=== PATIENT | female | born 1975 | race Caucasian/White ===

== ENCOUNTER 2017-11-11 06:43 | Inpatient (IN) | payer OTHER ==
[2017-11-03 13:10] VITALS: BMI 34.8
[2017-11-11] MEDS ORDERED: DEXAMETHASONE SOD PHOSPHATE 10 MG/ML 1 ML VIAL IV ONE (06:47)
[2017-11-11] MEDS ORDERED: ONDANSETRON 4 MG/2 ML VIAL IVP ONE (06:47)
[2017-11-11] MEDS ORDERED: MIDAZOLAM 2 MG/2 ML VIAL IV PRN (06:47)
[2017-11-11] MEDS ORDERED: LIDOCAINE 1% 20 ML VIAL (10MG/ML) FOR IV START INTRADERMA PRN (06:47)
[2017-11-11] MEDS ORDERED: SCOPOLAMINE 1.5MG/72HR PATCH TRANSDERM ONE (06:47)
[2017-11-11] MEDS ORDERED: LACTATED RINGERS 1,000 ML IV ONE ×2 (07:25→09:50)
[2017-11-11 08:01] LABS: Basophils # (A) 0.1 k/uL (0-0.2); Basophils % (A) 1 %; Eosinophils # (A) 0.2 k/uL (0-0.7); Eosinophils % (A) 3 %; HCT 43.1 % (34.0-46.0); HGB 14.6 gm/dL (11.4-16.0); Lymphocytes # (A) 2.5 k/uL (1.0-4.8); Lymphocytes % (A) 25 %; MCH 29.6 pg (25.0-35.0); MCHC 33.9 g/dL (31.0-37.0); MCV 87.5 fL (80.0-100.0); Mean Platelet Volume 6.8; Monocytes # (A) 0.6 k/uL (0-1.0); Monocytes % (A) 6 %; Neutrophils # (A) 6.1 k/uL (1.3-7.7); Neutrophils % (A) 63 %; Platelet Count 465 k/uL (150-450); RBC 4.93 m/uL (3.80-5.40); RDW 13.6 % (11.5-15.5); WBC 9.7 k/uL (3.8-10.6)
[2017-11-11] MEDS ORDERED: ROCURONIUM BROMIDE 10 MG/ML 10 ML VIAL IV ONE (08:32)
[2017-11-11] MEDS ORDERED: SUCCINYLCHOLINE CHLORIDE 100 MG/5 ML SYR IV ONE (08:32)
[2017-11-11] MEDS: BACITRACIN 50,000 UNIT, POLYMYXIN B 500,000 UNIT in SODIUM CHLORIDE 0.9% IRRIGATIO 1,00... IRRIGATION ONE ×2 (08:32→09:26)
[2017-11-11] MEDS ORDERED: LIDOCAINE 1% INJ 10MG/ML (20 ML MDV) ONE (08:32)
[2017-11-11] MEDS ORDERED: fentaNYL (PF) 50 MCG/ML 2 ML AMP ONE (08:32)
[2017-11-11] MEDS ORDERED: PROPOFOL 10 MG/ML 20 ML VIAL IV ONE (08:32)
[2017-11-11] MEDS ORDERED: HYDROmorphone (PF) 1 MG/ML ONE (08:32)
[2017-11-11] MEDS ORDERED: MIDAZOLAM 2 MG/2 ML VIAL ONE (08:32)
[2017-11-11] MEDS: ceFAZolin IN SWFI 2 GM/20 ML SYRINGE IVP ONE ×3 (08:40→09:30)
[2017-11-11] MEDS ORDERED: GELATIN SPONGE,ABSORB (SMALL) 1 EACH SPONGE TOPICAL ONE (09:26)
[2017-11-11] MEDS ORDERED: LIDOCAINE 1%-EPI 1:100,000 30 ML VIAL SQ ONE ×2 (09:26→11:40)
[2017-11-11] MEDS ORDERED: THROMBIN (BOVINE) 5,000 UNIT VIAL TOPICAL ONE (09:26)
[2017-11-11] MEDS ORDERED: ROPIVACAINE 5 MG/ML 30 ML VIAL MISCELLANE ONE ×2 (09:56→11:40)
[2017-11-11] MEDS ORDERED: ONDANSETRON 4 MG/2 ML VIAL IVP PRN (11:59)
[2017-11-11] MEDS ORDERED: MAGNESIUM HYDROXIDE 2,400 MG/10 ML CUP PO PRN (11:59)
[2017-11-11] MEDS ORDERED: BENZOCAINE/MENTHOL LOZENG 1 EACH LOZENGE MUCOUS MEM PRN (11:59)
[2017-11-11] MEDS ORDERED: HYDROmorphone 0.5 MG/0.5 ML SYRINGE IVP PRN (11:59)
[2017-11-11] MEDS ORDERED: FAMOTIDINE 20 MG TAB PO PRN (12:02)
--- NOTE | 2017-11-11 12:09 | P.OP ---
Date of Procedure: 11/11/17 Preoperative Diagnosis: Spondylolisthesis L5-S1 grade 2 Spinal stenosis Foraminal stenosis Low back pain with lower extremity radiculopathy Postoperative Diagnosis: Same Anesthesia: GETA Pathology: none sent Condition: stable Disposition: PACU Description of Procedure: DESCRIPTION OF PROCEDURE(S): BRIEF OPERATIVE NOTE Preoperative Diagnosis: Grade 2 spondylolisthesis L5-S1, spinal stenosis, foraminal stenosis, low back pain and lower extremity radiculopathy, degenerative disc disease Postoperative Diagnosis: Same Procedure: Laminectomy and decompression bilaterally at L5-S1 Minimally invasive Posterior lateral decompression and fusion L5-S1 Minimally invasive Transforaminal lumbar interbody fusion for a 360 fusion L5-S1 Discectomy for decompression L5-S1 Placement of interbody graft L5-S1 Local autogenous bone grafting Harvesting of bone marrow aspirate via the pedicle and vertebral body of L5 Use of bone graft extenders Surgeon: Dr. Armenta School Psychologist Assistant: Shannan Bedolla and Skylar HERRERA, one of whom is present throughout the entire the case persistence during positioning, dissection, exposure, visualization, and all crucial elements of the case as well as closure. Anesthesia: General anesthesia per Dr. Dr. Ruiz Estimated blood loss: Approximately 150 mL Complications: None apparent Components implanted: K2M minimally invasive [place] pedicle screw system with 6.5 mm screws to rods and 1 [place] interbody cage with 1 osteoamp sponge and 30 mL of DBX bone fibers to supplemental local autogenous bone marrow aspirate graft Disposition: To recovery room in good stable condition. OPERATIVE INDICATIONS The patient has had long-standing issues in their lower back and lower extremities. She was found have a dynamic spondylolisthesis at L5-S1 with significant stenosis and disc degeneration which correlated well with her low back and lower extremity symptoms. The patient has been through conservative treatment. She is not having any lasting benefit despite aggressive conservative treatment and she was having worsening of her daily activities and her ability to work due to her issues. We discussed various treatment options including surgery, and the patient wishes to proceed with surgery We discussed the risk, patient's alternatives and benefits of surgery including but not limited to, risk of bleeding risk of infection, risk of need for further surgery , risk of decreased, loss of motion, muscle function, malunion nonunion, hardware failure, nerve damage, paralysis, heart attack, blindness and . OPERATIVE SUMMARY After discussing all the risks, patient alternatives and benefits at length, the patient elected to proceed with surgical intervention, signed informed consent, and presented for their procedure. The patient was seen and examined in the preoperative holding area and the surgical site was marked. The patient was given antibiotics and brought to the operating room. The patient was sedated and intubated by anesthesia in standard fashion. The patient was positioned on to the operating room table in a prone position on the appropriate frame which was well-padded and well molded. We were careful to pad any bony prominences and pressure points. We were careful to maintain the patient's cervical spine and good neutral alignment and position throughout. The patient was prepped and draped in a normal standard fashion. An appropriate timeout and keystone protocol performed. We were able to proceed with the surgery. The local wound area was infiltrated with local anesthetic. I was able utilize C-arm guidance to establish appropriate position over the pedicles bilaterally at the appropriate levels at L5-S1. The patient does have tattoos at her lower back and she was aware that the surgical incisions may involve the tattoos themselves and she understood. With the appropriate levels confirmed was able to make small stab incisions over the appropriate pedicle sites bilaterally. Utilizing C-arm in his house able to establish a Jamshidi needle over the lateral aspect of the pedicle and advanced the trocar into the pedicle being careful not to breech superiorly inferiorly medially or laterally. Position was confirmed regularly with AP and lateral images on C- arm. I was able to establish the trocar into the pedicle appropriately into the posterior aspect of the vertebral body bilaterally at the appropriate levels at L5-S1 on the right. This was done at each of the pedicle positions and each of the vertebrae. I was able place the guidewire into the trocar and into the vertebral body appropriately under C-arm guidance. On the right side I did withdraw bone marrow aspirate from the pedicle of L5 for supplementing the bone graft and fusion. Dissection was taken down over the wire to the appropriate starting position for the screw placed. The appropriate length screw was chosen, threaded over the guidewire and screwed appropriately into the pedicle and vertebral body under C-arm guidance in excellent alignment and position with good bony purchase. This is done at each of the screw sites at the appropriate levels at L5 and S1. I did reposition the screw at S1 as it did have some stimulation. I was able place in good alignment and good position with excellent bony purchase with no evidence of stimulation.. With the screws intact I extended the incision to connect the screw hole sites on the most symptomatic side on the right. I dissected down to establish access over the pars and lamina to the base of the spinous process. I was able to expose the facet joint. The capsule the facet was taken down and showed some facet arthrosis at the joint. I was able to use a combination of curettes and Kerrison rongeurs and a high-speed drill to take down the facet joint and do a facetectomy. Partial laminectomy was also performed. I was able get excellent foraminal decompression and central decompression with undermining across midline to perform a laminectomy centrally and contralaterally. As able get good central decompression. The ligamentum flavum was taken down to further decompress centrally and at bilateral neural foramen. I was able to expose the disc space and visualize the traversing nerve root. Note was made of some disc protrusion at the level causing further compression of the nerve root. I was able to establish a annulotomy at the appropriate level protecting soft tissue and neural structures. Note was made of some disc desiccation at the disc. I performed a complete discectomy with accommodation of curettes and rasps and scrapers. There is an obvious step-off with a listhesis at that level. I was able get good endplate preparation at the disc space. I sized for the appropriate size interbody spacer protecting the soft tissue and neural structures. The wound was copiously irrigated and suctioned dry. There is no evidence of any dural tear or leak. I was able to pack the disc space with local autogenous bone graft as well as a small amount of bone graft which was also placed into the interbody cage itself. Protecting the soft tissue structures and neural structures I was able place the interbody cage in good alignment and good position with good fit and fill at the interbody space. His issues was confirmed with C-arm guidance. Good hemostasis maintained. There is no evidence of any dural tear or leak. The wound was irrigated and suctioned dry. With the hardware intact, intraoperative C-arm imaging was again taken which showed good alignment and position of the hardware at the appropriate levels at L5-S1. We were then able to measure, contour and place the rods and appropriate hardware bilaterally. I was able to place capcrews, tighten them down, and torque them with the torque screwdriver appropriately. With this intact I was able to place the local autogenous bone graft with additional bone graft enhancer as necessary into the posterior lateral gutters over the decorticated transverse processes and facet joints. The remainder of the bone graft was placed over the facet joint on the contralateral side after taking down the facet joint capsule. With the bone graft intact, a stable construct, and good decompression at the appropriate levels, we were able to proceed with closure. Good hemostasis was maintained. There is no evidence of dural tear or leak. The fascia was closed for a watertight closure. he subcuticular tissue was closed with absorbable suture. The wound was cleaned and dried and dressed with the appropriate dressing. The drapes were broken down. The patient was gently rolled back onto their hospital bed being careful to maintain their cervical spine and good neutral alignment and position. They were woken up by anesthesia, extubated, and brought to the recovery room in good stable condition. The patient will be admitted to the hospital for appropriate postoperative care , medical management and monitoring. We will continue to follow them closely about the postoperative course.
--- NOTE | 2017-11-11 12:21 | FL ---
EXAMINATION TYPE: FL guidance operating room DATE OF EXAM: 11/11/2017 HISTORY: Flouroscopy time 1 minute and 49 seconds of fluoroscopy provided. IMPRESSION: 1. Fluoroscopy time.
[2017-11-11] MEDS: fentaNYL (PF) 50 MCG/ML 2 ML AMP IVP ONE ×4 (12:25→13:49)
[2017-11-11] MEDS: HYDROmorphone 0.5 MG/0.5 ML SYRINGE IVP PRN ×6 (12:50→21:49)
[2017-11-11] MEDS: DIAZEPAM 5 MG TAB PO PRN (13:20)
[2017-11-11] MEDS: HYDROcodone/APAP 7.5-325MG 1 EACH TAB PO PRN ×2 (14:41→20:33)
[2017-11-11] MEDS: LACTATED RINGERS 1,000 ML IV SCH (15:15)
[2017-11-11] MEDS: SODIUM CHLORIDE 0.9% 1,000 ML IV SCH (15:15)
[2017-11-11] MEDS: NICOTINE 14MG/24HR PATCH TRANSDERM SCH (16:02)
--- NOTE | 2017-11-11 16:54 | P.CONS ---
History of Present Illness - Reason for Consult Consult date: 11/11/17 Medical managment Requesting physician: Bebe Armenta - History of Present Illness This is a 42 year old patient of Dr. Zhao. She presented today for a planned Minimally invasive transfcraminal lumbar interbody fusion L5-S1 with Neural integrity monitor with Dr. Armenta. She has a medical history of GERD, Osteoarthritis, degenerative disk disease, anxiety and depression. She is currently resting in bed with mild discomfort. Patient informed that we do not carry the medication Vraylar in the hospital that she takes for her anxiety. Patient states that the buspar should be sufficient to control her anxiety but aware that if she needs the Vraylar she may have it brought into the hospital ang given to the nursing staff to administer. Patient denies any chest pain or SOB. Denies nausea, vomiting or diarrhea. Review of Systems please see HPI, otherwise unremarkable Past Medical History Past Medical History: GERD/Reflux, Osteoarthritis (OA) Additional Past Medical History / Comment(s): degenerative disk disease, high triglycerides, History of Any Multi-Drug Resistant Organisms: None Reported Past Surgical History: Cholecystectomy, Ear Surgery, Tonsillectomy Past Anesthesia/Blood Transfusion Reactions: No Reported Reaction Past Psychological History: Anxiety, Depression Smoking Status: Current every day smoker Past Alcohol Use History: Occasional Additional Past Alcohol Use History / Comment(s): smokes 1/2 PPD, for 23 yrs Past Drug Use History: None Reported - Past Family History Mother Family Medical History: No Reported History Medications and Allergies Home Medications Medication Instructions Recorded Confirmed Type Cariprazine HCl [Vraylar] 1.5 mg PO BID 11/03/17 11/11/17 History Ergocalciferol [Vitamin D2] 50,000 unit PO TU 11/03/17 11/11/17 History Gemfibrozil [Lopid] 600 mg PO BID 11/03/17 11/11/17 History Hydrocodone/Acetaminophen 1 tab PO BID 11/03/17 11/11/17 History [Hydrocodon-Acetaminoph 7.5-325] Meloxicam [Mobic] 7.5 mg PO BID 11/03/17 11/11/17 History Ranitidine HCl [Zantac] 150 mg PO BID PRN 11/03/17 11/11/17 History busPIRone HCl [Buspar] 10 mg PO BID 11/03/17 11/11/17 History Allergies Allergy/AdvReac Type Severity Reaction Status Date / Time erythromycin base Allergy Rash/Hives Verified 11/11/17 15:05 levofloxacin [From Levaquin] Allergy Rash/Hives Verified 11/11/17 15:05 sulfamethoxazole Allergy Rash/Hives Verified 11/11/17 15:05 [From Bactrim] trimethoprim [From Bactrim] Allergy Rash/Hives Verified 11/11/17 15:05 Physical Exam Vitals: Vital Signs Temp Pulse Pulse Resp BP BP Pulse Ox 11/11/17 14:06 89 18 130/82 97 11/11/17 13:51 96 18 129/82 97 11/11/17 13:36 100 16 125/64 97 11/11/17 13:19 92 18 131/78 99 11/11/17 13:04 81 20 133/72 98 11/11/17 12:49 97 18 140/81 96 11/11/17 12:34 94 20 140/84 97 11/11/17 12:19 97.0 F L 116 H 22 148/83 96 11/11/17 07:07 98.0 F 98 18 106/68 98 Intake and Output 11/11/17 11/11/17 11/11/17 06:59 14:59 22:59 Intake Total 1851 Output Total 650 Balance 1201 Intake: IV 1851 Output: Urine 500 Estimated Blood Loss 150 Head: Normocephalic Neck: supple Lungs: clear to auscultation bilaterally no wheezing or crackles Heart: regular rate and rhythm S1-S2, no rub or gallop Abdomen: soft and nontender. positive bowel sounds Extremities: no edema Neuro: alert and orientated X 3 Results CBC & Chem 7: 11/11/17 07:35 Labs: Abnormal Lab Results - Last 24 Hours (Table) 11/11/17 Range/Units 07:35 Plt Count 465 H (150-450) k/uL Assessment and Plan Assessment: 1. Post Minimally invasive transfcraminal lumbar interbody fusion L5-S1 with Neural integrity monitor with Dr. Armenta 2. Anxiety: Buspar ordered. Patient instructed that if needed she can have her medication Vraylar brought in and given to the nursing staff for administration. 3. Nicotine Dependence: Nicotine patch ordered 4. History of Osteoarthritis 5. History of GERD: Pepcid ordered DVT prophylaxis SCD, GI prophylaxis Pepcid Time with Patient: Greater than 30
[2017-11-11] MEDS: ceFAZolin IN SWFI 2 GM/20 ML SYRINGE IVP SCH (16:56)
[2017-11-11] MEDS: busPIRone HCl 10 MG TAB PO SCH (20:33)
[2017-11-11] MEDS: GEMFIBROZIL 600 MG TAB PO SCH (20:34)
[2017-11-12] MEDS: Cariprazine Hcl [Vraylar] 1.5 MG PO SCH ×2 (00:35→08:30)
[2017-11-12] MEDS: ceFAZolin IN SWFI 2 GM/20 ML SYRINGE IVP SCH (00:48)
[2017-11-12] MEDS: HYDROmorphone 0.5 MG/0.5 ML SYRINGE IVP PRN ×2 (01:54→06:26)
[2017-11-12] MEDS: HYDROcodone/APAP 7.5-325MG 1 EACH TAB PO PRN ×2 (03:49→11:47)
[2017-11-12 07:18] LABS: Basophils % (A) 0 %; Eosinophils # (A) 0.1 k/uL (0-0.7); Eosinophils % (A) 1 %; HCT 38.4 % (34.0-46.0); HGB 13.1 gm/dL (11.4-16.0); Lymphocytes # (A) 2.7 k/uL (1.0-4.8); Lymphocytes % (A) 16 %; MCH 30.2 pg (25.0-35.0); MCHC 34.3 g/dL (31.0-37.0); MCV 88.1 fL (80.0-100.0); Mean Platelet Volume 6.7; Monocytes # (A) 0.9 k/uL (0-1.0); Monocytes % (A) 5 %; Neutrophils # (A) 12.5 k/uL (1.3-7.7); Neutrophils % (A) 75 %; Platelet Count 392 k/uL (150-450); RBC 4.35 m/uL (3.80-5.40); RDW 13.6 % (11.5-15.5); WBC 16.5 k/uL (3.8-10.6)
[2017-11-12] MEDS: SODIUM CHLORIDE 0.9% 1,000 ML IV SCH (07:33)
[2017-11-12 07:34] LABS: Anion Gap 12 mmol/L; Blood Urea Nitrogen 11 mg/dL (7-17); Calcium 9.7 mg/dL (8.4-10.2); Carbon Dioxide 24 mmol/L (22-30); Chloride 105 mmol/L (98-107); Glucose 121 mg/dL (74-99); Potassium 4.1 mmol/L (3.5-5.1); Sodium 141 mmol/L (137-145)
[2017-11-12 07:55] VITALS: BP 102/65; TEMP 98.2
--- NOTE | 2017-11-12 08:22 | P.DS ---
Providers Date of admission: 11/11/17 06:43 Attending physician: Bebe Armenta Consults: 11/11/17 11:59 Consult Physician Routine Consulting Provider: Liv Zhao Consult Reason/Comments: Medical management Do you want consulting provider notified?: Yes 11/11/17 13:55 Consult Physician Routine Consulting Provider: Jacob Rincon Consult Reason/Comments: medical management Do you want consulting provider notified?: Yes Primary care physician: Liv Zhao Hospital Course: The patient presented on the day of admission as per her operative note . and she underwent minimally invasive decompression and fusion L5-S1 as per her operative note for her severe spondylolisthesis with degenerative disc disease and stenosis. She says she is doing well today and though she has seen him and soreness in her back or legs are doing well and she has been able to mobilize. She feels her pain medicine is controlling her pain adequately. Physical Exam The incision site is clean dry and intact. There is no erythema no drainage. There is no purulence no evidence of infection. Abdomen soft and nontender. Chest has good excursion with deep inspiration and expiration. The patient has active and passive range of motion intact at the upper and lower extremities. There is no acute change in neurologic status. I changed her dressing which had been saturated overnight. There is no active drainage from the wound site. There is mild swelling but no erythema and no further bleeding at this point. Steri-Strips are intact. Hospital Course postoperative day #1 status post minimally invasive decompression and fusion at L5-S1 for her spondylolisthesis with spinal stenosis and lower extremity radiculopathy. The patient has been making good progress postoperatively. They have completed the prophylactic antibiotics without any signs or symptoms of infection. The patient has been able to advance their diet, and is tolerating diet adequately. The pain was initially controlled with IV medications and is now controlled appropriately with oral medications. The patient has been able to increase their mobilization. she has been ambulatory in the hallways this morning and feels good getting in and out of bed. She is hopeful go home today The patient has progressed appropriately. I think they are in good stable condition for discharge today IF she is able to mobilize further and do well with her oral diet and oral pain control. The wound has been doing well but she has significant drainage today we may have to monitor this overnight as well. . They will be sent home with appropriate prescriptions. she was on [place] 7.[address] Domingo in the past and we will continue her on this when she goes home with a new prescription. I answered their questions to the best of my ability in a language that they can understand and they are agreeable with the plan. They will follow up as directed in approximately 2 weeks or sooner if she is having a problems . Patient Condition at Discharge: Good Plan - Discharge Summary Discharge Rx Participant: Yes New Discharge Prescriptions: New HYDROcodone/APAP 7.5-325MG [[place] 7.5-325] 1 tab PO Q6HR PRN 28 Days #90 tab PRN Reason: Severe Pain No Action Hydrocodone/Acetaminophen [Hydrocodon-Acetaminoph 7.5-325] 1 tab PO BID Cariprazine HCl [Vraylar] 1.5 mg PO BID busPIRone HCl [Buspar] 10 mg PO BID Meloxicam [Mobic] 7.5 mg PO BID Ranitidine HCl [Zantac] 150 mg PO BID PRN PRN Reason: Heartburn Gemfibrozil [Lopid] 600 mg PO BID Ergocalciferol [Vitamin D2] 50,000 unit PO Discharge Medication List Cariprazine HCl [Vraylar] 1.5 mg PO BID 11/03/17 [History] Ergocalciferol [Vitamin D2] 50,000 unit PO TU 11/03/17 [History] Gemfibrozil [Lopid] 600 mg PO BID 11/03/17 [History] Hydrocodone/Acetaminophen [Hydrocodon-Acetaminoph 7.5-325] 1 tab PO BID [History] Meloxicam [Mobic] 7.5 mg PO BID 11/03/17 [History] Ranitidine HCl [Zantac] 150 mg PO BID PRN 11/03/17 [History] busPIRone HCl [Buspar] 10 mg PO BID 11/03/17 [History] HYDROcodone/APAP 7.5-325MG [[place] 7.5-325] 1 tab PO Q6HR PRN 28 Days #90 tab [Rx] Follow up Appointment(s)/Referral(s): Bebe Armenta DO [Doctor of Osteopathic Medicine] - 2 Weeks Activity/Diet/Wound Care/Special Instructions: Keep site clean. May shower with waterproof Tegaderm intact. Do not soak in a tub. On Thursday, the patient may remove dressing and then may shower with area uncovered but do not soak in a tub. Leak Steri-Strips intact and allow them to fray off on their own. May ambulate to tolerance. No heavy or rigorous activity. No repetitive bending twisting or lifting. Discharge Disposition: HOME SELF-CARE
[2017-11-12] MEDS: NICOTINE 14MG/24HR PATCH TRANSDERM SCH (08:29)
[2017-11-12] MEDS: busPIRone HCl 10 MG TAB PO SCH (08:29)
[2017-11-12] MEDS: GEMFIBROZIL 600 MG TAB PO SCH (08:29)
[2017-11-12] MEDS: LACTATED RINGERS 1,000 ML IV SCH (08:45)
[2017-11-12] MEDS ORDERED: SENNOSIDES-DOCUSATE SODIUM 1 EACH TAB PO SCH (09:00)
[2017-11-12 09:40] VITALS: PULSE 84; RESP 16
[2017-11-12] MEDS: DIAZEPAM 5 MG TAB PO PRN (10:01)
--- NOTE | 2017-11-12 12:28 | P.PN ---
Subjective Progress Note Date: 11/12/17 This is a 42 year old patient of Dr. Zhao. She presented today for a planned Minimally invasive transfcraminal lumbar interbody fusion L5-S1 with Neural integrity monitor with Dr. Armenta. She has a medical history of GERD, Osteoarthritis, degenerative disk disease, anxiety and depression. She is currently resting in bed with mild discomfort. Patient informed that we do not carry the medication Vraylar in the hospital that she takes for her anxiety. Patient states that the buspar should be sufficient to control her anxiety but aware that if she needs the Vraylar she may have it brought into the hospital ang given to the nursing staff to administer. Patient denies any chest pain or SOB. Denies nausea, vomiting or diarrhea. 11/12/2017 patient is scheduled for discharge later this afternoon. Heart rate this morning was 84. Tachycardia has resolved. And it was likely related to patient's pain. Patient has been up and ambulate in. Denies any chest pain or shortness of breath. Denies any nausea or vomiting. Denies any burning with urination. Has not had a bowel movement yet. Objective - Vital Signs Vital signs: Vital Signs Temp 98.2 F 11/12/17 07:20 Pulse 84 11/12/17 07:20 Resp 16 11/12/17 07:20 BP 102/65 11/12/17 07:20 Pulse Ox 98 11/11/17 19:49 Intake & Output 11/11/17 11/12/17 11/12/17 18:59 06:59 18:59 Intake Total 2331 2080 Output Total 650 1000 Balance 1681 1080 Intake: IV 1851 Intake, IV Titration 1200 Amount Sodium Chloride 0.9% 1, 1200 000 ml @ 75 mls/hr IV . [id number] [facility] Rx#:[id number] Oral 480 880 Output: Urine 500 1000 Uretheral (Miller) 1000 Estimated Blood Loss 150 Other: Voiding Method Toilet Toilet # Voids 3 - Exam Head normocephalic Neck supple Lungs clear to auscultation bilaterally no wheezing or crackles Heart regular rate and rhythm S1-S2, no rub or gallop Abdomen is soft nontender nondistended positive bowel sounds no hepatosplenomegaly Extremities no edema Neuro alert and orientated to 3 - Labs CBC & Chem 7: 11/12/17 06:39 11/12/17 06:39 Labs: Abnormal Lab Results - Last 24 Hours (Table) 11/12/17 11/12/17 Range/Units 06:39 06:39 WBC 16.5 H (3.8-10.6) k/uL Neutrophils # 12.5 H (1.3-7.7) k/uL Glucose 121 H (74-99) mg/dL Assessment and Plan Assessment: 1. Status Post Minimally invasive decompression and fusion at L5 to S1 for spondylolisthesis with spinal stenosis and lower extremity radiculopathy. Continue pain medication per Dr. Armenta 2. Anxiety: Buspar ordered. Patient instructed that if needed she can have her medication Vraylar brought in and given to the nursing staff for administration. 3. Nicotine Dependence 4. History of Osteoarthritis 5. History of GERD: Pepcid ordered 6. Leukocytosis: No evidence of an acute infection. Likely related to the dexamethasone she received yesterday 7. Sinus tachycardia likely related to patient's pain now resolved Patient is medically stable for discharge. We'll have her follow-up with her PCP in 1 week I performed an examination of the patient and discussed their management with the physician Farm Machinery Engine Mechanic. I have reviewed the Physician Farm Machinery Engine Mechanic's notes and agree with the documented findings and plan of care
[2017-11-17] MEDS ORDERED: ERGOCALCIFEROL 50,000 UNIT CAP PO SCH (09:00)
== END 2017-11-12 15:28 | disposition home or self-care (01) | DRG 455 ==
LOC: 2ORMAIN 06:43 → 3SUR 13:33
PROVIDERS: ADMIT Orthopaedic Surgery Orthopaedic Surgery of the Spine; ATTEND Orthopaedic Surgery Orthopaedic Surgery of the Spine
PROC: 0SG3071 Fusion of Lumbosacral Joint with Autologous Tissue Substitute, Posterior Approach, Posterior Column, Open Approach (ICD-10-PCS; 2017-11-11)
PROC: 0ST40ZZ Resection of Lumbosacral Disc, Open Approach (ICD-10-PCS; 2017-11-11)
PROC: 07DS3ZZ Extraction of Vertebral Bone Marrow, Percutaneous Approach (ICD-10-PCS; 2017-11-11)
PROC: 4A11X4G Monitoring of Peripheral Nervous Electrical Activity, Intraoperative, External Approach (ICD-10-PCS; 2017-11-11)
PROC: 0SG30AJ Fusion of Lumbosacral Joint with Interbody Fusion Device, Posterior Approach, Anterior Column, Open Approach (ICD-10-PCS; principal; 2017-11-11 08:30)
DX: M43.17 Spondylolisthesis, lumbosacral region (principal); D72.829 Elevated white blood cell count, unspecified; M48.07 Spinal stenosis, lumbosacral region; M47.27 Other spondylosis with radiculopathy, lumbosacral region; M51.37 Other intervertebral disc degeneration, lumbosacral region; F32.9 Major depressive disorder, single episode, unspecified; F41.9 Anxiety disorder, unspecified; E78.5 Hyperlipidemia, unspecified; K21.9 Gastro-esophageal reflux disease without esophagitis; F17.210 Nicotine dependence, cigarettes, uncomplicated; Z71.6 Tobacco abuse counseling; Z79.1 Long term (current) use of non-steroidal anti-inflammatories (NSAID); Z79.891 Long term (current) use of opiate analgesic; Z79.899 Other long term (current) drug therapy; Z88.1 Allergy status to other antibiotic agents; Z88.2 Allergy status to sulfonamides; Z90.49 Acquired absence of other specified parts of digestive tract; Z83.3 Family history of diabetes mellitus; Z82.49 Family history of ischemic heart disease and other diseases of the circulatory system
CPT/HCPCS: 72100; 80048; 81025; 85025

== ENCOUNTER → 2019-02-21 | Outpatient (CLI) | payer OTHER ==
--- NOTE | 2019-02-23 10:00 | MM ---
Reason for exam: screening (asymptomatic). Last mammogram was performed 5 years and 3 months ago. History: Benign left mammotome panel of the left breast, January 17, 2005. Physical Findings: A clinical breast exam by your physician is recommended on an annual basis and results should be correlated with mammographic findings. MG Screening Mammo w CAD Bilateral CC and MLO view(s) were taken. Prior study comparison: December 01, 2013, bilateral MG screening mammo w CAD. September 13, 2012, bilateral digital screening mammo w/CAD. There are scattered fibroglandular densities. Previous mammotome biopsy in the left breast. No significant changes when compared with prior studies. ASSESSMENT: Benign, BI-RAD 2 RECOMMENDATION: Routine screening mammogram of both breasts in 1 year.
== END | disposition home or self-care (01) ==
LOC: RADMAMWWP 16:37
PROVIDERS: ATTEND Family Medicine
DX: Z12.31 Encounter for screening mammogram for malignant neoplasm of breast (principal)
CPT/HCPCS: 77067

== ENCOUNTER → 2020-03-21 | Day surgery (SDC) | payer OTHER ==
[2020-03-19 14:12] VITALS: BMI 33.3
[2020-03-21 10:49] VITALS: BP 130/82; PULSE 95; RESP 16; TEMP 98.8
== END ==
LOC: ORWHC2ENDO 10:33
PROVIDERS: ATTEND Internal Medicine Gastroenterology
DX: K21.9 Gastro-esophageal reflux disease without esophagitis (principal)
CPT/HCPCS: 91010

== ENCOUNTER 2020-12-27 09:37 | Emergency (ER) | payer OTHER ==
[2020-12-27 09:53] VITALS: BP 131/89; PULSE 103; RESP 18; TEMP 97.8
[2020-12-27] MEDS ORDERED: DIPH,PERTUS(ACELL)TETVAC-LF 0.5 ML VIAL IM ONE (10:21)
--- NOTE | 2020-12-27 11:00 | XR ---
EXAMINATION TYPE: XR shoulder complete LT DATE OF EXAM: 12/27/2020 CLINICAL HISTORY: Pain after lifting injury. TECHNIQUE: Three views of the left shoulder are obtained. COMPARISON: None. FINDINGS: There is no acute fracture/dislocation evident in the left shoulder. The acromioclavicula r and glenohumeral joint spaces appear within normal limits. The visualized ribs are intact and unre markable. IMPRESSION: There is no acute fracture or dislocation in the left shoulder.
--- NOTE | 2020-12-27 11:03 | ED ---
General Adult HPI - General Chief complaint: Extremity Injury, Upper Stated complaint: Lt Elbow/Shoulder Pain Time Seen by Provider: 12/27/20 09:52 Source: patient Mode of arrival: ambulatory Limitations: no limitations - History of Present Illness Initial comments: 45-year-old female presents to the emergency room for a chief complaint of left shoulder pain. Patient reports that 2-3 weeks ago she was using a wheelbarrow. Patient lifted a wheelbarrow and felt a pain in her left shoulder. Patient states she has been trying to rest it but it does not seem to go away. States she cannot lift her arm above her head because of the pain. If denies radiates down to the left elbow.Patient has no other complaints at this time including shortness of breath, chest pain, abdominal pain, nausea or vomiting, headache, or visual changes. - Related Data Home Medications Medication Instructions Recorded Confirmed Ergocalciferol [Vitamin D2 50,000 unit PO [place] 11/03/17 03/21/20 (DRISDOL)] busPIRone HCl [Buspar] 10 mg PO BID 11/03/17 03/21/20 gemfibroziL [Lopid] 600 mg PO BID 11/03/17 03/21/20 Celecoxib [CeleBREX] 200 mg PO DAILY 03/21/20 03/21/20 traZODone HCL 1 tab PO DAILY 03/21/20 03/21/20 Previous Rx's Medication Instructions Recorded HYDROcodone/APAP 7.5-325MG [[place] 1 tab PO Q6HR PRN 28 Days #90 tab 11/12/17 7.5-325] Allergies Allergy/AdvReac Type Severity Reaction Status Date / Time erythromycin base Allergy Rash/Hives Verified 12/27/20 09:45 levofloxacin [From Levaquin] Allergy Rash/Hives Verified 12/27/20 09:45 sulfamethoxazole Allergy Rash/Hives Verified 12/27/20 09:45 [From Bactrim] trimethoprim [From Bactrim] Allergy Rash/Hives Verified 12/27/20 09:45 Review of Systems ROS Statement: Those systems with pertinent positive or pertinent negative responses have been documented in the HPI. ROS Other: All systems not noted in ROS Statement are negative. Past Medical History Past Medical History: GERD/Reflux, Osteoarthritis (OA) Additional Past Medical History / Comment(s): degenerative disk disease, high triglycerides, chronic back pain History of Any Multi-Drug Resistant Organisms: None Reported Past Surgical History: Cholecystectomy, Ear Surgery, Tonsillectomy Additional Past Surgical History / Comment(s): Back surgery with rods. Past Anesthesia/Blood Transfusion Reactions: No Reported Reaction Past Psychological History: Anxiety Smoking Status: Former smoker Past Alcohol Use History: Occasional Past Drug Use History: None Reported - Past Family History Mother Family Medical History: No Reported History General Exam Limitations: no limitations General appearance: alert, in no apparent distress Head exam: Present: atraumatic, normocephalic, normal inspection Eye exam: Present: normal appearance, PERRL, EOMI. Absent: scleral icterus, conjunctival injection, periorbital swelling ENT exam: Present: normal exam, mucous membranes moist Neck exam: Present: normal inspection, full ROM. Absent: tenderness, meningismus, lymphadenopathy Respiratory exam: Present: normal lung sounds bilaterally. Absent: respiratory distress, wheezes, rales, rhonchi, stridor Cardiovascular Exam: Present: regular rate, normal rhythm, normal heart sounds. Absent: systolic murmur, diastolic murmur, rubs, gallop, clicks Extremities exam: Present: tenderness (Tenderness to the superior shoulder), normal capillary refill (Capillary refill less than 2 seconds, radial pulse 2+), other (Sensation intact in the left hand. Patient able to flex and extend wrist, make a fist, and abduct all fingers.). Absent: full ROM (After reduction of the left shoulder to 90. Flexion to 130. Positive Dorsey sign) Course Vital Signs 12/27/20 09:45 Temperature 97.8 F Pulse Rate 103 H Respiratory 18 Rate Blood Pressure 131/89 O2 Sat by Pulse 96 Oximetry Medical Decision Making - Medical Decision Making X-ray of the left shoulder shows no acute fracture or dislocation. Patient needs to follow-up with orthopedics and I suspect there is rotator cuff injury. Sling was not applied in order to prevent frozen shoulder. Discussed increasing range of motion. She will take NSAIDS and follow-up with orthopedics. Disposition Clinical Impression: Shoulder pain, left Disposition: HOME SELF-CARE Condition: Good Instructions (If sedation given, give patient instructions): Shoulder Pain (ED) Additional Instructions: Please take Motrin and Tylenol for pain. Do range of motion exercises on the left shoulder. Follow-up with orthopedics. Return to the emergency room for any worsening symptoms. Is patient prescribed a controlled substance at d/c from ED?: No Referrals: Liv Zhao MD [Primary Care Provider] - 1-2 days Imer Brody MD [STAFF PHYSICIAN] - 1-2 days Time of Disposition: 11:14
[2020-12-27] MEDS ORDERED: KETOROLAC 15 MG/ML 1 ML VIAL IM STA (11:28)
== END 2020-12-27 11:38 | disposition home or self-care (01) ==
LOC: EC 09:37
DX: M25.512 Pain in left shoulder (principal); K21.9 Gastro-esophageal reflux disease without esophagitis; M19.90 Unspecified osteoarthritis, unspecified site; Z87.891 Personal history of nicotine dependence; Z88.1 Allergy status to other antibiotic agents; Z88.2 Allergy status to sulfonamides; Z79.899 Other long term (current) drug therapy; X50.0XXA Overexertion from strenuous movement or load, initial encounter; Y93.89 Activity, other specified
CPT/HCPCS: 73030; 99283; 96372; J1885

== ENCOUNTER → 2022-02-28 | Outpatient (CLI) | payer OTHER ==
--- NOTE | 2022-03-03 08:19 | MM ---
Reason for Exam: Screening (asymptomatic). Last mammogram was performed 3 year(s) and 1 month(s) ago. Patient History: Menarche at age 14. First Full-Term at age 21. Patient has history of breast feeding. 01/17/2005, Benign Core Biopsy on the left side. Risk Values: Zonia 5 year model risk: 0.9%. NCI Lifetime model risk: 8.6%. Prior Study Comparison: 09/13/2012 Bilateral Screening Mammogram, [facility]. 12/01/2013 Bilateral Screening Mammogram, [facility]. 02/21/2019 Bilateral Screening Mammogram, [facility]. Tissue Density: There are scattered fibroglandular densities. Findings: Analyzed By CAD. Pattern appears symmetrical and stable. Markers within the left breast. No suspicious groups of microcalcifications, spiculated or lobular masses, architectural distortion or other secondary signs of malignancy are mammographically apparent. Overall Assessment: Benign, BI-RAD 2 Management: Screening Mammogram of both breasts in 1 year. A negative mammogram report should not preclude additional follow up of suspicious palpable abnormalities. Patient should continue monthly self breast exam. A clinical breast exam by your physician is recommended on an annual basis and results should be correlated with mammographic findings. Electronically signed and approved by: Tigre Reich D.O. Radiologis
== END | disposition home or self-care (01) ==
LOC: RADMAMWWP 12:29
PROVIDERS: ATTEND Family Medicine
DX: Z12.31 Encounter for screening mammogram for malignant neoplasm of breast (principal)
CPT/HCPCS: 77067

== ENCOUNTER → 2023-04-04 | Outpatient (CLI) | payer OTHER ==
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
== END | disposition home or self-care (01) ==
LOC: RADMRIMAIN 08:24
PROVIDERS: ATTEND Neurological Surgery
DX: M51.16 Intervertebral disc disorders with radiculopathy, lumbar region (principal); M47.26 Other spondylosis with radiculopathy, lumbar region; M79.604 Pain in right leg; Z98.890 Other specified postprocedural states
CPT/HCPCS: 72148

== ENCOUNTER → 2023-10-14 | Outpatient (CLI) | payer OTHER ==
--- NOTE | 2023-10-20 19:53 | MM ---
Reason for Exam: Screening (asymptomatic). Last mammogram was performed 1 year(s) and 7 month(s) ago. Patient History: Menarche at age 14. First Full-Term at age 21. Patient has history of breast feeding. 01/17/2005, Benign Core Biopsy on the left side. Last menstrual period: 09/19/2023 Risk Values: Zonia 5 year model risk: 0.9%. NCI Lifetime model risk: 8.3%. Prior Study Comparison: 12/01/2013 Bilateral Screening Mammogram, [facility]. 02/21/2019 Bilateral Screening Mammogram, [facility]. 02/28/2022 Bilateral MG screening mammo w CAD, [facility]. Tissue Density: There are scattered areas of fibroglandular density. Findings: Analyzed By CAD. Microclip left breast from prior biopsy. There is no suspicious group of microcalcifications or new suspicious mass in either breast. Overall Assessment: Benign, BI-RAD 2 Management: Screening Mammogram of both breasts in 1 year. . Patient should continue monthly self-breast exams. A clinical breast exam by your physician is recommended on an annual basis. This exam should not preclude additional follow-up of suspicious palpable abnormalities. Note on Zonia scores and lifetime risk: 1. A Zonia score greater than 3% is considered moderate risk. If this is the case, consider specialist referral to assess eligibility for a risk reducing agent. 2. If overall lifetime risk for the development of breast cancer is 20% or higher, the patient may qualify for future screening with alternating mammogram and breast MRI. Electronically signed and approved by: Carole Caruso M.D. Radiologist
== END | disposition home or self-care (01) ==
LOC: RADMAMWWP 09:41
PROVIDERS: ATTEND Family Medicine
DX: Z12.31 Encounter for screening mammogram for malignant neoplasm of breast (principal)
CPT/HCPCS: 77063; 77067

== ENCOUNTER → 2024-03-02 | Outpatient (CLI) | payer OTHER ==
--- NOTE | 2024-03-03 11:04 | NM ---
EXAMINATION TYPE: NM thyroid image w uptake DATE OF EXAM: 03/03/2024 COMPARISON: NONE CLINICAL INDICATION: Female, 48 years old with history of E04.1 NONTOXIC SINGLE THYROID NODULE; TECHNIQUE: Thyroid iodine uptake is calculated and images performed after the oral administration of 309 uCi 1-123 Capsule. FINDINGS: Images demonstrate focal increased activity within the left thyroid lobe that could represent a hyper functioning nodule. The 4 hour iodine uptake is calculated at 7.7% (normal range 8-14%). The 24-hour iodine uptake is calculated at 14.8% (normal range 15-35%). IMPRESSION: 1. Possible nodule within the mid left thyroid lobe. Correlate with findings on thyroid ultrasound. 2. Despite the increased activity at the site of the potential nodule, uptake measurements are low styles ggesting hypothyroidism. Clinically correlate. [facility], , 03/03/2024 11:01 AM
== END | disposition home or self-care (01) ==
LOC: RADNMMAIN 08:44
PROVIDERS: ATTEND Family Medicine
DX: E04.1 Nontoxic single thyroid nodule (principal)
CPT/HCPCS: 78014

== ENCOUNTER 2024-05-16 13:45 | Day surgery (SDC) | payer OTHER ==
[2024-05-13 09:06] VITALS: BMI 39.4
[2024-05-16 14:40] VITALS: RESP 16; TEMP 97.6
[2024-05-16] MEDS: LACTATED RINGERS 1,000 ML IV SCH (14:42)
[2024-05-16] MEDS: LIDOCAINE 1% (10MG/ML) FOR IV START INTRADERMA PRN (14:43)
[2024-05-16] MEDS: IV FLUID CONTINUATION 1,000 ML IV ONE ×2 (14:50→15:29)
[2024-05-16 14:59] LABS: Glucose,Whole Blood 93 mg/dL (70-110)
[2024-05-16] MEDS ORDERED: PROPOFOL 10 MG/ML 20 ML VIAL IV ONE (15:30)
--- NOTE | 2024-05-16 15:37 | P.GSHP ---
History of Present Illness H&P Date: 05/16/24 Chief Complaint: Screening colonoscopy Is a 49-year-old female who presents today for screening colonoscopy. Patient denies any significant GI complaints. Past Medical History Past Medical History: GERD/Reflux, Osteoarthritis (OA) Additional Past Medical History / Comment(s): degenerative disk disease, high triglycerides, chronic back pain History of Any Multi-Drug Resistant Organisms: None Reported Past Surgical History: Back Surgery, Cholecystectomy, Ear Surgery, Tonsillectomy Additional Past Surgical History / Comment(s): Back surgery with rods. Past Anesthesia/Blood Transfusion Reactions: No Reported Reaction Additional Past Anesthesia/Blood Transfusion Reaction / Comment(s): no blood transfusion Smoking Status: Former smoker - Past Family History Mother Family Medical History: No Reported History Medications and Allergies Home Medications Medication Instructions Recorded Confirmed Type Ergocalciferol [Vitamin D2 50,000 unit PO TH 11/03/17 05/13/24 History (DRISDOL)] gemfibroziL [Lopid] 600 mg PO BID 11/03/17 05/13/24 History traZODone HCL 300 mg PO HS 03/21/20 05/13/24 History Famotidine 40 mg PO DAILY 12/27/20 05/13/24 History HYDROcodone/APAP 7.5-325MG [[place] 1 tab PO QID 12/27/20 05/13/24 History 7.5-325] Ibuprofen [Motrin] 600 mg PO Q8H PRN 12/27/20 05/13/24 History Sertraline [Zoloft] 100 mg PO DAILY 05/13/24 05/13/24 History metroNIDAZOLE 500 mg PO BID 05/13/24 05/13/24 History Semaglutide [Ozempic] 0.5 mg SQ WEEKLY 05/16/24 05/16/24 History Allergies Allergy/AdvReac Type Severity Reaction Status Date / Time erythromycin base Allergy Rash/Hives Verified 05/13/24 09:02 levofloxacin [From Levaquin] Allergy Rash/Hives Verified 05/13/24 09:02 sulfamethoxazole Allergy Rash/Hives Verified 05/13/24 09:02 [From Bactrim] trimethoprim [From Bactrim] Allergy Rash/Hives Verified 05/13/24 09:02 Surgical - Exam Vital Signs Temp Pulse Resp BP Pulse Ox 97.6 F 80 16 115/75 95 05/16/24 14:38 05/16/24 14:38 05/16/24 14:38 05/16/24 14:38 05/16/24 14:38 - General well developed, well nourished, no distress - Eyes PERRL - ENT normal pinna - Neck no masses - Respiratory normal expansion - Cardiovascular Rhythm: regular - Abdomen Abdomen: soft, non tender Assessment and Plan Assessment: Will perform screening colonoscopy.
--- NOTE | 2024-05-16 15:50 | P.OP ---
Date of Procedure: 05/16/24 Preoperative Diagnosis: Screening colonoscopy Postoperative Diagnosis: Normal colonoscopy Procedure(s) Performed: Colonoscopy Anesthesia: MAC Surgeon: Stanislaw Islas Pathology: none sent Condition: stable Disposition: PACU Description of Procedure: The patient was placed on the endoscopy table in the lateral position. She received IV sedation. Digital rectal exams performed. This revealed no abnormalities. Flexible colonoscope was then placed patient anus passed throughout the entire colon. The ileocecal valve was visualized. The cecum, ascending and transverse colon appeared normal. The descending and sigmoid colon appeared normal. The rectum was normal. Scope withdrawn for the patient.
[2024-05-16 15:54] VITALS: BP 120/82; PULSE 82
== END 2024-05-16 16:40 | disposition home or self-care (01) ==
LOC: ORWHC2ENDO 13:45
PROVIDERS: ATTEND Surgery
DX: Z12.11 Encounter for screening for malignant neoplasm of colon (principal); K21.9 Gastro-esophageal reflux disease without esophagitis; M19.90 Unspecified osteoarthritis, unspecified site; E78.1 Pure hyperglyceridemia; E11.9 Type 2 diabetes mellitus without complications; F41.9 Anxiety disorder, unspecified; G47.33 Obstructive sleep apnea (adult) (pediatric); Z90.89 Acquired absence of other organs; Z90.49 Acquired absence of other specified parts of digestive tract; Z87.891 Personal history of nicotine dependence; Z88.1 Allergy status to other antibiotic agents; Z88.2 Allergy status to sulfonamides; Z79.1 Long term (current) use of non-steroidal anti-inflammatories (NSAID); Z79.899 Other long term (current) drug therapy
CPT/HCPCS: 45378; 81025